=== PATIENT | female | born 1950 | race Caucasian/White ===

== ENCOUNTER 2017-10-12 20:05 | Emergency (ER) | payer BC, MEDICARE ==
[2017-10-12] MEDS ORDERED: Adacel (T-DAP) 0.5 ML VIAL ONE ×2 (20:39→20:53)
[2017-10-12] MEDS ORDERED: Amoxicillin/Potassium Clav 875 MG TAB ONE (20:39)
== END 2017-10-12 21:19 | disposition home or self-care (01) ==
LOC: SCSER 20:05
DX: S01.03XA Puncture wound without foreign body of scalp, initial encounter (principal); W61.92XA Struck by other birds, initial encounter; Y92.009 Unspecified place in unspecified non-institutional (private) residence as the place of occurrence of the external cause
CPT/HCPCS: 90471; 90715